=== PATIENT | female | born 1980 ===

== ENCOUNTER 2017-09-05 00:01 | Emergency (ER) | payer OTHER ==
[2017-09-05 00:21] VITALS: BMI 26.6
--- NOTE | 2017-09-05 01:56 | ED PDOC ---
Arrival/HPI - General Chief Complaint: Back Pain Time Seen by Provider: 09/05/17 00:11 Historian: Patient - History of Present Illness Narrative History of Present Illness (Text): 09/05/17 00:53 37 year old female, with no significant past medical history, presents to the Emergency department complaining of left lower back discomfort radiating to her left buttock and leg area since one week. Patient informs visiting her PMD last week, who prescribed her pain medications with mild relief to symptoms. As per patient, the pain returned with worsening discomfort after possible exacerbation from work. Patient denies any trauma, leg weakness, changes in bowel movement, urinary output changes, fever, chills, nausea, vomiting, diarrhea, abdominal pain, chest pain, shortness of breath or any other complaints. PMD: Dr. Bond Time/Duration: 1 week Symptom Onset: Gradual Symptom Course: Unchanged Quality: Aching Activities at Onset: Light Context: Home Past Medical History - Provider Review Nursing Documentation Reviewed: Yes - Travel History If Yes, travel location?: [place] - Infectious Disease Hx of Infectious Diseases: None - Reproductive Menopause: No - Cardiac Hx Cardiac Disorders: No - Pulmonary Hx Respiratory Disorders: No - Neurological Hx Neurological Disorder: No - HEENT Hx HEENT Disorder: No - Renal Hx Renal Disorder: No - Endocrine/Metabolic Hx Endocrine Disorders: No - Hematological/Oncological Hx Blood Disorders: No - Integumentary Hx Dermatological Disorder: No - Musculoskeletal/Rheumatological Hx Musculoskeletal Disorders: No - Gastrointestinal Hx Gastrointestinal Disorders: No - Genitourinary/Gynecological Hx Genitourinary Disorders: No - Psychiatric Hx Psychophysiologic Disorder: No Hx Substance Use: No - Anesthesia Hx Anesthesia: No Family/Social History - Physician Review Nursing Documentation Reviewed: Yes Family/Social History: No Known Family HX Smoking Status: Never Smoked Hx Alcohol Use: Yes Frequency of alcohol use: Socially Hx Substance Use: No Allergies/Home Meds Allergies/Adverse Reactions: Allergies No Known Allergies Allergy (Verified 09/05/17 00:31) Review of Systems - Physician Review All systems were reviewed & negative as marked: Yes - Review of Systems Constitutional: Normal. absent: Fevers Eyes: Normal ENT: Normal Respiratory: Normal. absent: SOB Cardiovascular: Normal. absent: Chest Pain Gastrointestinal: Normal. absent: Abdominal Pain, Stool Changes, Diarrhea, Nausea, Vomiting Genitourinary Female: Normal. absent: Urine Output Changes Musculoskeletal: Back Pain Skin: Normal Neurological: Normal Endocrine: Normal Hemo/Lymphatic: Normal Psychiatric: Normal Physical Exam Vital Signs Reviewed: Yes Vital Signs Temp Pulse Resp BP Pulse Ox 09/05/17 05:46 97.8 F 78 18 106/65 98 09/05/17 05:35 97.7 F 71 16 108/62 100 09/05/17 00:21 99.3 F 72 20 115/75 98 Temperature: Afebrile Blood Pressure: Normal Pulse: Regular Respiratory Rate: Normal Appearance: Positive for: Well-Appearing, Non-Toxic, Comfortable Pain Distress: None Mental Status: Positive for: Alert and Oriented X 3 - Systems Exam Head: Present: Atraumatic, Normocephalic Pupils: Present: PERRL Extroacular Muscles: Present: EOMI Conjunctiva: Present: Normal Mouth: Present: Moist Mucous Membranes Neck: Present: Normal Range of Motion Respiratory/Chest: Present: Clear to Auscultation, Good Air Exchange. No: Respiratory Distress, Accessory Muscle Use Cardiovascular: Present: Regular Rate and Rhythm, Normal S1, S2. No: Murmurs Abdomen: No: Tenderness, Distention, Peritoneal Signs Back: Present: Other (Palpable tenderness to left lateral lumbar area with some spasm and slight discomfort with left straight leg raise.). No: CVA Tenderness , Paraspinal Tenderness Upper Extremity: Present: Normal Inspection, Neurovascularly Intact. No: Cyanosis, Edema Lower Extremity: Present: Normal Inspection, Normal ROM, Neurovascularly Intact. No: Edema Neurological: Present: GCS=15, CN II-XII Intact, Speech Normal, Motor Func Grossly Intact, Normal Sensory Function Skin: Present: Warm, Dry, Normal Color. No: Rashes Psychiatric: Present: Alert, Oriented x 3, Normal Insight, Normal Concentration Medical Decision Making ED Course and Treatment: 09/05/17 00:53 Impression: 37 year old female presents to the Emergency department for left lower back discomfort. Plan: -- Flexeril -- Toradol -- X-ray of Lumbar Spine -- Reassess and disposition Prior Visits: Notes and results from previous visits were reviewed. Progress Notes: 09/05/17 05:10 X-ray of lumbar spine reviewed by radiologist, shows no acute findings or processes. - RAD Interpretation Radiology Orders: 09/05/17 00:53 LS SPINE WITH OBL > 18 YRS OLD [RAD] Stat Data Virtualization Consultant: ED Physician - Medication Orders Current Medication Orders: Discontinued Medications Cyclobenzaprine HCl (Flexeril) 10 mg PO ONCE ONE Stop: 09/05/17 00:54 Last Admin: 09/05/17 01:12 Dose: 10 mg Ketorolac Tromethamine (Toradol) 60 mg IM ONCE ONE Stop: 09/05/17 00:54 Last Admin: 09/05/17 01:12 Dose: 60 mg MAR Pain Assessment Document 09/05/17 01:12 RE (Rec: 09/05/17 01:14 [place] [id number]) Pain Reassessment Is this a pain reassessment? No Sleep Is patient sleeping during reassessment? No Presence of Pain Presence of Pain Yes Pain Scale Used Pain Scale Used Numeric Location Left, Right or Bilateral Left IM Administration Charges Document 09/05/17 01:12 RE (Rec: 09/05/17 01:14 [place] [id number]) Injection Site MAR Injection Site Right Arm Charges for Administration # of IM Administrations 1 Oxycodone/Acetaminophen (Percocet 5/325 Mg Tab) 1 tab PO STAT STA Stop: 09/05/17 05:11 Last Admin: 09/05/17 05:32 Dose: 1 tab MAR Pain Assessment Document 09/05/17 05:32 RE (Rec: 09/05/17 05:33 RE [place] [id number]) Pain Reassessment Is this a pain reassessment? Yes Sleep Is patient sleeping during reassessment? No Presence of Pain Presence of Pain Yes Pain Scale Used Pain Scale Used Numeric Description Description Constant Intensity of Pain at present 10 Acceptable Level of Pain 2 Radiation Location left buttock Pain Behavior Moaning Aggravating Factors Walking - Scribe Statement The provider has reviewed the documentation as recorded by the Scribe Price Maldonado. All medical record entries made by the Scribe were at my direction and personally dictated by me. I have reviewed the chart and agree that the record accurately reflects my personal performance of the history, physical exam, medical decision making, and the department course for this patient. I have also personally directed, reviewed, and agree with the discharge instructions and disposition. Disposition/Present on Arrival - Present on Arrival Any Indicators Present on Arrival: No History of DVT/PE: No History of Uncontrolled Diabetes: No Urinary Catheter: No History of Decub. Ulcer: No History Surgical Site Infection Following: None - Disposition Have Diagnosis and Disposition been Completed?: Yes Diagnosis: Sciatica Disposition: HOME/ ROUTINE Disposition Time: 05:57 Patient Plan: Discharge Condition: GOOD Discharge Instructions (ExitCare): Sciatica (DC) Additional Instructions: Take meds as prescribed/avoid prolonged sitting/no bending/follow up with your doctor this week/any recurrent worsening symptoms return to the emergency room Prescriptions: Cyclobenzaprine [Cyclobenzaprine HCl] 10 mg PO TID PRN #15 tab PRN Reason: Muscle Spasm oxyCODONE/Acetaminophen [Percocet 5/325 mg Tab] 1 ea PO Q6 PRN #16 tab PRN Reason: Pain, Moderate (4-7) Referrals: Les Bond MD [Primary Care Provider] - Follow up with primary Forms: [employer] ([place])
[2017-09-05] MEDS ORDERED: Oxycodone/Acetaminophen 5/325 mg Tab PO STA (05:10)
[2017-09-05 05:46] VITALS: RESP 18; TEMP 97.8
[2017-09-05 06:16] VITALS: BP 108/64; PULSE 74; O2SAT 99
--- NOTE | 2017-09-05 09:11 | RAD ---
PROCEDURE: Radiographs of the Lumbar Spine. HISTORY: lower back Pain. No history of recent/ related trauma provided COMPARISON: No prior. FINDINGS: BONES: Normal alignment. No listhesis. No fracture. DISC SPACES: Unremarkable. OTHER FINDINGS: None. IMPRESSION: Unremarkable radiographs of the lumbar spine.
== END 2017-09-05 06:16 | disposition home or self-care (01) ==
LOC: ED 00:01
DX: M54.30 Sciatica, unspecified side (principal)
CPT/HCPCS: 72110; 96372; 99283; J1885